=== PATIENT | female | born 1960 | race Caucasian/White ===

== ENCOUNTER 2021-11-07 12:56 | Emergency (ER) | payer OTHER ==
[~2021-11-07 12:56] MED LIST: FLEXERIL 10 MG10 MG PO
[2021-11-07 13:44] LABS: HEMOGLOBIN 13.5 gm/dl (12.3-15.3); RED BLOOD COUNT 4.17 M/UL (4.00-5.10); WHITE BLOOD COUNT 5.3 K/UL (4.5-11.0)
[2021-11-07 14:09] LABS: BUN/CREATININE RATIO 19 (0-10)
== END 2021-11-07 15:52 | disposition home or self-care (01) ==
LOC: ER1 12:56
PROVIDERS: Student in an Organized Health Care Education/Training Program
DX: U07.1 COVID-19 (principal); Z88.6 Allergy status to analgesic agent
CPT/HCPCS: 71045; 80053; 85025; 93971; 99284

== ENCOUNTER → 2021-11-24 | Outpatient (CLI) | payer OTHER | LOC: MAMO 14:52 | DX: Z12.31 Encounter for screening mammogram for malignant neoplasm of breast (principal) | CPT/HCPCS: 77063; 77067 ==